=== PATIENT | male | born 1945 | race Caucasian/White ===

== ENCOUNTER 2017-06-06 20:13 | Emergency (ER) | payer MEDICARE, OTHER ==
[~2017-06-06] VITALS: Ht 170.2 cm; Wt 112.0 kg
[~2017-06-06 20:13] MED LIST: ASPI-1441 PO; ASPI81TA94 PO; BLOO-1777 MC; CEP500 PO; GLY25 PO; GLY5 PO; HCTZ25 PO; HYDR-2966 PO; INSU100V26 IJ; METF-420 PO; NPH,100V12 SQ; PARO10TA80 PO; PNEU0.5D3 IM; RAMI2.5C42 PO; SYRI-1525 MC; TRIO80T TOP
--- NOTE | 2017-06-06 20:31 | ER Report ---
History and Physical Time Seen By MD: 20:30 Hx. of Stated Complaint: PATIENT REPORTS HEADACHE, DIZZINESS AND SORE THROAT FOR THE LAST FEW DAYS HPI/ROS CHIEF COMPLAINT: Headache, dizziness HISTORY OF PRESENT ILLNESS: 71-year-old male patient presents to emergency room with complaint of headache, dizziness. Patient states that today he was watching television and developed dizziness. 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 He states that is not uncommon for him to be dizzy however he states that his dizziness scared him tonight. He states that he did call and talk with his son which come down some. We did want to come in and be evaluated. Patient states he 's had a cough as well. States he typically does not have a headache states that today he does have a headache. He states that there is nothing really seems to make it better. He denies having any fevers, chills, nausea, vomiting or diarrhea. REVIEW OF SYSTEMS: Respiratory: As noted above Cardiovascular: No chest pain, no palpitations. Gastrointestinal: No vomiting, no abdominal pain. Musculoskeletal: No back pain. Allergies: Coded Allergies: No Known Drug Allergies (Verified , 04/04/11) Home Meds Active Scripts Azithromycin 250 Mg Tab (AZITHROMYCIN 250 MG TAB) 250 Mg Tablet, 1 TAB PO QDAY, #4 TAB Prov:JOCELYN SMALLSP 06/06/17 Oseltamivir Phosphate (TAMIFLU) 75 Mg Cap, 75 MG PO BID, #8 CAP Prov:JOCELYN SMALLS 06/06/17 Syringe & Needle,Insulin,1 Ml (INSULIN SYRINGE) 1 Each Disp.syrin, EACH MC Q30D , #100 12 Refills Prov:TIM CHRISTINE MD 05/03/17 Hydrochlorothiazide (HYDROCHLOROTHIAZIDE) 25 Mg Tablet, 1 TAB PO QDAY, #90 TAB 3 Refills Prov:TIM CHRISTINE MD 02/02/17 Metformin Hcl (METFORMIN HCL) 1,000 Mg Tablet, 1 TAB PO BID, #120 TAB 3 Refills Prov:TIM CHRISTINE MD 01/30/17 Blood Sugar Diagnostic (FREESTYLE LITE STRIPS) 1 Each Strip, 1 STRIP MC QDAY, # 100 STRIP 12 Refills Prov:TIM CHRISTINE MD 10/27/16 Glyburide (GLYBURIDE) 5 Mg Tab, 2 TAB PO QDAY, #60 TAB 11 Refills Prov:TIM CHRISTINE MD 10/25/16 Ramipril (RAMIPRIL) 2.5 Mg Capsule, 1 TAB PO QDAY, #30 CAPSULE 12 Refills Prov:TIM CHRISTINE MD 08/31/16 Nph, Human Insulin Isophane (NOVOLIN N) 100 Unit/1 Ml Vial, 25 UNIT SQ QAM, #10 VIAL 11 Refills Prov:TIM CHRISTINE MD 07/26/16 Paroxetine Hcl (PAROXETINE HCL) 10 Mg Tablet, 1 TAB PO QDAY, #30 TAB 11 Refills Prov:TIM CHRISTINE MD 05/24/16 Reported Medications Aspirin (ASPIRIN) 81 Mg Tab.chew, 1 TAB PO QDAY, TAB.CHEW 12/19/13 Past Medical/Surgical History Patient has a past medical history of CVA, hypertension, blind in right eye, 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 Patient denies any surgical history. Patient has a family medical history of stroke. Reviewed Nurses Notes: Yes Hx Smoking: No Smoking Status: Never Smoker Exposure to Second Hand Smoke?: Yes Hx Substance Use Disorder: No Hx Alcohol Use: No Constitutional Vital Sign - Last 24 Hours 06/06/17 06/06/17 06/06/17 06/06/17 20:21 20:24 20:25 20:30 Temp 99.6 Pulse 110 Resp 20 B/P (MAP) 157/86 (109) 128/77 (94) 128/77 Pulse Ox 86 O2 Delivery Room Air O2 Flow Rate 2.0 06/06/17 06/06/17 06/06/17 06/06/17 20:30 20:43 20:59 21:02 Pulse 113 B/P (MAP) 133/74 (93) 139/76 (97) 134/85 (101) Pulse Ox 97 06/06/17 06/06/17 06/06/17 06/06/17 21:04 21:10 21:11 21:12 Pulse 109 115 108 Resp 20 20 22 B/P (MAP) 129/76 (93) 139/76 (97) 134/85 (101) 129/76 (93) Pulse Ox 98 95 91 O2 Delivery Nasal Cannula Nasal Cannula Nasal Cannula O2 Flow Rate 4 4 4 2/21/18 06/06/17 06/06/17 06/06/17 21:13 21:30 21:43 22:00 Pulse 106 106 B/P (MAP) 142/77 (98) 137/84 (101) Pulse Ox 97 94 Physical Exam General Appearance: The patient is alert, has no immediate need for airway protection and no current signs of toxicity. ENT: Tympanic membranes are pearly-peace, auditory canals are patent, mucous membranes are moist. Respiratory: Chest is non tender, lungs are clear to auscultation. Cardiac: regular rate and rhythm Gastrointestinal: Abdomen is soft and non tender, no masses, bowel sounds normal. Musculoskeletal: Neck: Neck is supple and non tender. Extremities have full range of motion and are non tender. Skin: No rashes or lesions. DIFFERENTIAL DIAGNOSIS: After history and physical exam differential diagnosis was considered for dizziness including but not limited to peripheral and central causes of vertigo, orthostatic causes including dehydration, and blood loss. Medical Decision Making Data Points Result Diagram: 06/06/17205506/06/172055 Laboratory Hematology Test 06/06/17 20:50 06/06/17 20:56 Influenza Virus Type A (PCR) Negative (NEGATIVE) Influenza Virus Type B (PCR) Positive (NEGATIVE) Red Blood Count 5.90 M/uL (4.00-5.60) Mean Corpuscular Volume 77.3 fL (80.0-96.0) Mean Corpuscular Hemoglobin 25.2 pg (26.0-33.0) Mean Corpuscular Hemoglobin Concent 32.6 g/dL (32.0-36.0) Red Cell Distribution Width 16.1 % (11.5-14.5) Mean Platelet Volume 9.1 fL (7.2-11.1) Neutrophils (%) (Auto) 83.8 % (39.4-72.5) Lymphocytes (%) (Auto) 3.0 % (17.6-49.6) Monocytes (%) (Auto) 10.0 % (4.1-12.4) Eosinophils (%) (Auto) 2.2 % (0.4-6.7) Basophils (%) (Auto) 1.0 % (0.3-1.4) Nucleated RBC Relative Count (auto) 0.0 /100WBC Neutrophils # (Auto) 9.6 K/uL (2.0-7.4) Lymphocytes # (Auto) 0.3 K/uL (1.3-3.6) Monocytes # (Auto) 1.2 K/uL (0.3-1.0) Eosinophils # (Auto) 0.3 K/uL (0.0-0.5) Basophils # (Auto) 0.1 K/uL (0.0-0.1) Nucleated RBC Absolute Count (auto) 0.00 K/uL Peripheral Blood Smear Yes Y/N Sodium Level 135 mmol/L (137-145) Potassium Level 4.3 mmol/L (3.5-5.0) Chloride Level 97 mmol/L (98-107) Carbon Dioxide Level 25 mmol/L (22-30) Blood Urea Nitrogen 15 mg/dl (9-21) Creatinine 1.10 mg/dl (0.66-1.25) Glomerular Filtration Rate Calc > 60.0 Random Glucose 160 mg/dl (75-110) Calcium Level 8.9 mg/dl (8.4-10.2) Total Bilirubin 0.6 mg/dl (0.2-1.3) Aspartate Amino Transf (AST/SGOT) 17 U/L (0-35) Alanine Aminotransferase (ALT/SGPT) 28 U/L (0-56) Alkaline Phosphatase 104 U/L (0-126) Total Protein 7.6 gm/dl (6.3-8.2) Albumin 4.2 g/dl (3.5-5.0) Chemistry Test 06/06/17 20:50 06/06/17 20:56 Influenza Virus Type A (PCR) Negative (NEGATIVE) Influenza Virus Type B (PCR) Positive (NEGATIVE) White Blood Count 11.5 k/uL (4.5-11.0) Red Blood Count 5.90 M/uL (4.00-5.60) Hemoglobin 14.9 g/dL (14.0-18.0) Hematocrit 45.7 % (42.0-52.0) Mean Corpuscular Volume 77.3 fL (80.0-96.0) Mean Corpuscular Hemoglobin 25.2 pg (26.0-33.0) Mean Corpuscular Hemoglobin Concent 32.6 g/dL (32.0-36.0) Red Cell Distribution Width 16.1 % (11.5-14.5) Platelet Count 273 K/uL (150-450) Mean Platelet Volume 9.1 fL (7.2-11.1) Neutrophils (%) (Auto) 83.8 % (39.4-72.5) Lymphocytes (%) (Auto) 3.0 % (17.6-49.6) Monocytes (%) (Auto) 10.0 % (4.1-12.4) Eosinophils (%) (Auto) 2.2 % (0.4-6.7) Basophils (%) (Auto) 1.0 % (0.3-1.4) Nucleated RBC Relative Count (auto) 0.0 /100WBC Neutrophils # (Auto) 9.6 K/uL (2.0-7.4) Lymphocytes # (Auto) 0.3 K/uL (1.3-3.6) Monocytes # (Auto) 1.2 K/uL (0.3-1.0) Eosinophils # (Auto) 0.3 K/uL (0.0-0.5) Basophils # (Auto) 0.1 K/uL (0.0-0.1) Nucleated RBC Absolute Count (auto) 0.00 K/uL Peripheral Blood Smear Yes Y/N Glomerular Filtration Rate Calc > 60.0 Calcium Level 8.9 mg/dl (8.4-10.2) Total Bilirubin 0.6 mg/dl (0.2-1.3) Aspartate Amino Transf (AST/SGOT) 17 U/L (0-35) Alanine Aminotransferase (ALT/SGPT) 28 U/L (0-56) Alkaline Phosphatase 104 U/L (0-126) Total Protein 7.6 gm/dl (6.3-8.2) Albumin 4.2 g/dl (3.5-5.0) EKG/Imaging Imaging CHEST: Indication: Persistent cough. Technique: Frontal and lateral views were obtained. Comparison: 05/14/2011 Skeletal and soft tissue structures: Intact and unremarkable. Heart and mediastinum: There is mild deviation to the left, related to volume loss in the left lung. Otherwise unchanged. Lung benjamin: There is ill-defined parenchymal consolidation and volume loss in the left lower lobe, compatible with acute pneumonia. The lungs are otherwise clear. Pleural spaces: A small left effusion is present. Impression: Left lower lobe consolidation, compatible with acute pneumonia. Small left pleural effusion. Report Dictated By: Shan Cheema MD at 06/06/2017 10:32 PM Report E-Signed By: Shan Cheema MD at 06/06/2017 10:35 PM ED Course/Re-evaluation ED Course Patient was admitted to exam room, history and physical were obtained. Differential diagnoses were considered. On examination patient had a negative Hallpike test. A CBC, CMP, chest x-ray, influenza screen were done. Patient had an elevated white count of 11,500, had a little bit of a left shift. All joints were unremarkable. Chest x-ray showed left lower lobe consolidation. Patient was positive for influenza B. I discussed findings with the patient and his family. We will go ahead and treat him for both influenza as well as pneumonia. Patient was given a dose of Tamiflu here in the emergency room, a dose of azithromycin as well as a dose for Tamiflu in the morning. Patient is follow-up with his primary care provider in the next week. Patient verbalized understanding and agreement with plan. Decision to Disposition Date: Jun 06, 2017 Decision to Disposition Time: 22:07 Depart Departure Latest Vital Signs Vital Signs Date Time Temp Pulse Resp B/P (MAP) Pulse Ox O2 Delivery O2 Flow Rate FiO2 06/06/17 22:00 137/84 (101) 06/06/17 21:43 106 94 06/06/17 21:12 22 Nasal Cannula 4 06/06/17 20:25 99.6 Impression: Primary Impression: Influenza B Additional Impression: Pneumonia and influenza Condition: Improved Disposition: HOME OR SELF-CARE Referrals: TIM CHRISTINE MD (PCP) New Scripts Azithromycin 250 Mg Tab (AZITHROMYCIN 250 MG TAB) 250 Mg Tablet 1 TAB PO QDAY, #4 TAB Prov: JOCELYN SMALLS 06/06/17 Oseltamivir Phosphate (TAMIFLU) 75 Mg Cap 75 MG PO BID, #8 CAP Prov: JOCELYN SMALLS 06/06/17 Patient Instructions: Influenza (ED) Additional Instructions: Increase fluid intake. Get plenty of rest. Take Tylenol or Ibuprofen as needed for fevers or pain. Follow up with your primary care provider in the next week. Return to the ER if condition worsens. Problem Qualifiers JOCELYN SMALLS Jun 06, 2017 20:31
[2017-06-06 21:05] LABS: PLATELET COUNT, AUTOMATED 273 K/uL (150-450)
[2017-06-06] MEDS ORDERED: OSELTAMIVIR PHOS 75 MG CAP PO ONE ×2 (21:35→22:40)
[2017-06-06] MEDS ORDERED: OSE75 PO (22:08)
[2017-06-06 22:30] VITALS: BP 124/73
--- NOTE | 2017-06-06 22:38 | RADIOLOGY IMAGING REPORT ---
[place]AC[place] [facility] [place] NAME: Rajesh Neff : 1945 MR: [id number] V: [id number] EXAM DATE: ORDERING PHYSICIAN: JOCELYN SMALLS TECHNOLOGIST: Location: [facility] Patient: Rajesh Neff : 1945 Visit/Account:[id number] Date of Sevice: 06/06/2017 CHEST: Indication: Persistent cough. Technique: Frontal and lateral views were obtained. Comparison: 05/14/2011 Skeletal and soft tissue structures: Intact and unremarkable. Heart and mediastinum: There is mild deviation to the left, related to volume loss in the left lung. Otherwise unchanged. Lung benjamin: There is ill-defined parenchymal consolidation and volume loss in the left lower lobe, c ompatible with acute pneumonia. The lungs are otherwise clear. Pleural spaces: A small left effusion is present. Impression: Left lower lobe consolidation, compatible with acute pneumonia. Small left pleural effusi on. Report Dictated By: Shan Cheema MD at 06/06/2017 10:32 PM Report E-Signed By: Shan Cheema MD at 06/06/2017 10:35 PM WSN:[id number]
[2017-06-06] MEDS ORDERED: AZITHROMYCIN 250 MG TAB PO ONE (22:40)
[2017-06-06] MEDS ORDERED: AZIT-18 PO (22:42)
== END 2017-06-06 22:53 | disposition home or self-care (01) ==
LOC: ER 20:36
DX: J11.1 Influenza due to unidentified influenza virus with other respiratory manifestations (principal); J18.9 Pneumonia, unspecified organism
CPT/HCPCS: 71046; 85025; 87502; 99284; A9270; 82040; 82247; 82310; 82374; 82435; 82565; 82947; 84075; 84132; 84155; 84295; 84450; 84460; 84520

== ENCOUNTER → 2017-07-16 | Outpatient (CLI) | payer MEDICARE, OTHER ==
[~2017-07-16] MED LIST changes: +AZIT-18 PO; +OSE75 PO
== END ==
LOC: LAB 09:45
PROVIDERS: ATTEND Internal Medicine
DX: I10 Essential (primary) hypertension (principal); E11.319 Type 2 diabetes mellitus with unspecified diabetic retinopathy without macular edema
CPT/HCPCS: 36415; 82040; 82247; 82310; 82374; 82435; 82465; 82565; 82947; 83036; 83718; 84075; 84132; 84155; 84295; 84450; 84460; 84478; 84520

== ENCOUNTER → 2017-11-21 | Outpatient (CLI) | payer MEDICARE, OTHER ==
[~2017-11-21] MED LIST changes: +METF-421 PO
[2017-11-21 11:44] LABS: LDL CHOLESTEROL 73 mg/dl
== END ==
LOC: LAB 10:40
PROVIDERS: ATTEND Internal Medicine
DX: E11.319 Type 2 diabetes mellitus with unspecified diabetic retinopathy without macular edema (principal); I10 Essential (primary) hypertension
CPT/HCPCS: 36415; 82040; 82247; 82310; 82374; 82435; 82465; 82565; 82947; 83036; 83718; 84075; 84132; 84155; 84295; 84450; 84460; 84478; 84520

== ENCOUNTER 2018-01-25 21:12 | Inpatient (IN) | payer MEDICARE, OTHER ==
[~2018-01-25 21:12] MED LIST changes: -METF-421 PO; +METF-452 PO; -RAMI2.5C42 PO; +RAMI2.5C43 PO
--- NOTE | 2018-01-25 21:17 | ER Report ---
History and Physical Time Seen By MD: 21:17 HPI/ROS CHIEF COMPLAINT: Shortness of breath HISTORY OF PRESENT ILLNESS: 72-year-old male presents ambulatory to the ER presents with increasing shortness of breath for one week. Tonight he is very s hort of breath. He denies chest pain. He notes some congestion and a cough. He's had no phlegm or mucus. He's had no fever or chills. He's had no leg swelling or calf pain. REVIEW OF SYSTEMS: Respiratory: As above Cardiovascular: No chest pain, no palpitations. Gastrointestinal: No vomiting, no abdominal pain. Musculoskeletal: No back pain. Allergies: Coded Allergies: No Known Drug Allergies (Verified , 04/04/11) Home Meds Active Scripts Enoxaparin Sodium (LOVENOX) 120 Mg/0.8 Ml Disp.syrin, 120 MG SQ Q12H, #6 Take at 11am and 11pm, but can move dosing back 2 hours after 2 doses to better match bedtime. Prov:KIARA ALLRED MD 01/27/18 Warfarin Sodium (COUMADIN) 5 Mg Tablet, 5 MG PO HS, #30 Start on 01/28 Prov:KIARA ALLRED MD 01/27/18 Blood Sugar Diagnostic (FREESTYLE LITE STRIPS) 1 Each Strip, 1 STRIP MC QDAY, #100 STRIP 12 Refills Prov:TIM CHRISTINE MD 12/26/17 Nph, Human Insulin Isophane (NOVOLIN N) 100 Unit/1 Ml Vial, 25 UNIT SQ QAM, #10 VIAL 11 Refills Prov:TIM CHRISTINE MD 12/24/17 Metformin Hcl (METFORMIN HCL) 1,000 Mg Tablet, 1 TAB PO BID, #180 TAB 0 Refills Prov:TIM CHRISTINE MD 10/15/17 Ramipril (RAMIPRIL) 2.5 Mg Capsule, 1 TAB PO QDAY, #90 CAPSULE 3 Refills Prov:TIM CHRISTINE MD 09/26/17 Syringe & Needle,Insulin,1 Ml (INSULIN SYRINGE) 1 Each Disp.syrin, EACH MC Q30D, #100 6 Refills Prov:TIM CHRISTINE MD 08/14/17 Paroxetine Hcl (PAROXETINE HCL) 10 Mg Tablet, 1 TAB PO QDAY, #90 TAB 3 Refills Prov:TIM CHRISTINE MD 07/16/17 Hydrochlorothiazide (HYDROCHLOROTHIAZIDE) 25 Mg Tablet, 1 TAB PO QDAY, #90 TAB 3 Refills Prov:TIM CHRISTINE MD 02/02/17 Glyburide (GLYBURIDE) 5 Mg Tab, 2 TAB PO QDAY, #60 TAB 11 Refills Prov:TIM CHRISTINE MD 10/25/16 Reported Medications Aspirin (ASPIR 81) 81 Mg Tablet.dr, 81 MG PO QDAY, TAB 01/27/18 Discontinued Reported Medications Aspirin (ASPIRIN) 81 Mg Tab.chew, 1 TAB PO QDAY, TAB.CHEW 12/19/13 Past Medical/Surgical History Past Medical History HEENT: Reports hx of: retinopathy (diabetic) tinnitus vision deficit (diabetic retinopathy) Cardiovascular: Reports hx of: hyperlipidemia (pure hyperglyceridemia) hypertension Respiratory: Reports hx of: pneumonia (06/03 with influenza) Psychiatric: Reports hx of: anxiety depression Endocrine: Reports hx of: diabetes type 2 Infectious disease: Reports hx of: other infectious disease (06/03 influenza and [facility] pneu) Past Surgical History HEENT: Reports hx of: cataract extraction (10/25;11/25) R distal index finger amputation, [employer] 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 113 Resp 21 B/P (MAP) 174/102 174/102 (126) Pulse Ox 86 O2 Delivery Room Air O2 Flow Rate 2.0 01/25/18 01/25/18 01/25/18 01/25/18 21:21 21:30 21:42 21:42 Pulse 101 Resp 77 B/P (MAP) 169/97 (121) 156/97 (116) Pulse Ox 100 96 O2 Delivery Nasal Cannula O2 Flow Rate 2.0 01/25/18 01/25/18 01/25/18 01/25/18 21:42 22:00 22:12 22:30 Pulse 99 107 Resp 14 13 B/P (MAP) 154/89 (110) 162/93 (116) Pulse Ox 95 10/12/18 10/12/18 10/12/18 10/12/18 22:42 22:42 23:12 23:13 Pulse 106 106 105 Resp 17 17 12 B/P (MAP) 148/92 (110) Pulse Ox 93 93 94 01/25/18 01/25/18 01/25/18 01/26/18 23:18 23:30 23:48 00:00 Pulse 100 101 Resp 21 11 B/P (MAP) 149/76 (100) 137/83 (101) Pulse Ox 94 93 01/26/18 01/26/18 00:18 00:23 Pulse 99 98 Resp 19 15 Pulse Ox 94 94 Physical Exam General Appearance: The patient is alert, has no immediate need for airway protection and no current signs of toxicity. Vital signs stable, mild tachycardia, afebrile, pulse ox normal HEENT: Blind, oropharynx without redness or exudate, mucous. Membranes are moist. Respiratory: Chest is non tender, clear lung benjamin on the right. Decreased breath sounds on the left Cardiac: regular rate and rhythm Gastrointestinal: Abdomen is soft and non tender, no masses, bowel sounds normal. Musculoskeletal: Neck: Neck is supple and non tender. No JVD, no lymphadenopathy Extremities have full range of motion and are non tender. No calf tenderness, no edema Skin: No rashes or lesions. DIFFERENTIAL DIAGNOSIS: After history and physical exam differential diagnosis was considered for shortness of breath including but not limited to pulmonary infectious process, COPD, asthma, pulmonary embolus and congestive heart failure. Medical Decision Making Data Points Result Diagram: 01/27/18 0523 01/27/18 0523 Laboratory Hematology Test 01/25/18 22:00 D-Dimer Quantitative (PE/DVT) 2.60 ug/ml (0-0.50) Troponin I < 0.012 ng/ml B-Type Natriuretic Peptide 42 pg/ml (0-100) Chemistry Test 01/25/18 22:00 D-Dimer Quantitative (PE/DVT) 2.60 ug/ml (0-0.50) Troponin I < 0.012 ng/ml B-Type Natriuretic Peptide 42 pg/ml (0-100) Coagulation Test 01/25/18 22:00 D-Dimer Quantitative (PE/DVT) 2.60 ug/ml EKG/Imaging EKG Interpretation 12 lead EK Rhythm: As tachycardia, rate 103 [place]: At axis deviation QRS: normal ST segments: normal, no evidence of ischemia Imaging X-ray: Two-view chest x-ray was obtained. I viewed the images myself on the PACS system. My interpretation of the images is: No infiltrate,? Cardiomegaly,. The radiologist interpretation had no clinically significant variation from this interpretation. Results: CT scan of the CTA pulmonary angiogram was obtained. The results of the study are CT ANGIOGRAM OF THE CHEST WITH INTRAVENOUS CONTRAST, PE PROTOCOL DATE OF EXAM: 01/25/2018 22:27 COMPARISON: Chest radiographs of the same day. INDICATION: dyspnea. TECHNIQUE: Contrast enhanced chest CT performed during the injection of 75 ml of Isovue-370. Three-dimensional (MIP) reconstructions were performed. FINDINGS: There is a pulmonary arterial embolus in a subsegmental branch of the left lower lobe. This extends to a rounded pleural-based opacity. There is a small left pleural effusion. The central pulmonary arteries are enlarged with the pulmonary arterial trunk measuring 3.6 cm diameter. The RV LV ratio is less than 1. No reflux contrast into the hepatic veins. Thyroid: Normal Thoracic inlet: No adenopathy. Heart and great vessels: Heart size is normal. Mediastinum and herb: No mediastinal or hilar adenopathy. Lungs and pleura: Excluding the aforementioned opacity, there is mild scattered atelectasis. Breast and axilla: Unremarkable by CT. Bones and soft tissues: No acute osseous abnormality. Diffusely decreased bone density in the thoracic spine. Upper abdomen: There are a few colonic diverticula. IMPRESSION: 1. Positive for pulmonary arterial embolus in a subsegmental branch of the left lower lobe. The adjacent pleural-based opacity could be rounded atelectasis, infiltrate, or developing pulmonary infarct. There is a trace left pleural effusion. The study was read by the radiologist. I viewed the images myself on the PACS system. ED Course/Re-evaluation Clinical Indication for ER IV: IV Access ED Course Patient was admitted to an examination room. H&P was done. The differential diagnoses was considered. On clinical examination. Patient with shortness of breath and a cough. He's evaluated for potential etiologies of his shortness of breath. He is hypoxic. He is hypertensive and tachycardic. Diagnostic evaluation shows a normal chest x-ray, EKG is unremarkable. Patient's diagnostic studies show an elevated d-dimer, a CTA pulmonary angiogram is performed which shows a pulmonary embolism. And pulmonary infarction. Case is discussed with hospitalist for admission. 01/26/2018 12:02:48 am case discussed with Dr. Chandra Diaz hospitalist on- call, who accepts the patient for admission. Decision to Disposition Date: Jan 26, 2018 Decision to Disposition Time: 00:00 Critical Care Time I spent a total of 60 minutes of critical care time in obtaining history, performing a physical exam, bedside monitoring of interventions, collecting and interpreting tests and discussion with consultants but not including time spent performing procedures. Depart Departure Latest Vital Signs Vital Signs Date Time Temp Pulse Resp B/P (MAP) Pulse Ox O2 Delivery O2 Flow Rate FiO2 01/26/18 00:23 98 15 94 01/26/18 00:00 137/83 (101) 01/25/18 21:42 Nasal Cannula 2.0 Impression: Primary Impression: Pulmonary embolism Additional Impression: Pulmonary infarction Condition: Improved Disposition: Admitted from ER Referrals: TIM CHRISTINE MD (PCP) New Scripts Enoxaparin Sodium (LOVENOX) 120 Mg/0.8 Ml Disp.syrin 120 MG SQ Q12H, #6 Take at 11am and 11pm, but can move dosing back 2 hours after 2 doses to better match bedtime. Prov: KIARA ALLRED MD 01/27/18 Warfarin Sodium (COUMADIN) 5 Mg Tablet 5 MG PO HS, #30 Start on 01/28 Prov: KIARA ALLRED MD 01/27/18 Problem Qualifiers Primary Impression: Pulmonary embolism Pulmonary embolism type: other Chronicity: acute Acute cor pulmonale presence: without acute cor pulmonale Qualified Codes: I26.99 - Other pulmonary embolism without acute cor pulmonale YURIDIA BELL DO Jan 25, 2018 21:17
[2018-01-25] MEDS ORDERED: ALBUTEROL/IPRATROPIUM 3 ML NEB NEB ONE (21:25)
[2018-01-25 22:08] LABS: PLATELET COUNT, AUTOMATED 287 K/uL (150-450)
[2018-01-25] MEDS ORDERED: IOPAMIDOL 76% 75 ML INFUS BTL 75 ML ONE (22:41)
[2018-01-25] MEDS ORDERED: NS(*) 0.9% 50 ML BAG 50 ML ONE (22:41)
--- NOTE | 2018-01-25 23:38 | RADIOLOGY IMAGING REPORT ---
FACILITY: [facility] - [place] PATIENT NAME: Rajesh Neff : 1945 MR: [id number] V: [id number] EXAM DATE: ORDERING PHYSICIAN: YURIDIA BELL [place]CHNOLOG[place]: [place] [facility] [place] Rajesh [place] : 1945 Visit/Account:[id number] Date of Sevice: 01/25/2018 CHEST PA AND LAT HISTORY: Respiratory distress. COMPARISON: 06/06/2017 and studies dating to 02/04/2011. TECHNIQUE: PA and lateral views of the chest. FINDINGS: Pulmonary: Right lung is clear. There is a small left pleural effusion versus pleural thickening, unc hanged. There is stable rounded opacity at the left lateral lower lung, potentially rounded atelectas is. No pneumothorax. There is focal pleural thickening at the right lateral mid lung, stable. Cardiomediastinal: The cardiac silhouette is at the upper limits of normal. The mediastinal silhouett e is within normal limits. There is mild aortic calcification. Bones/soft tissues: No acute osseous abnormality. There is mild degenerative change of the spine. The re is mild wedging of T11 and T12, unchanged. The visible abdomen is normal. IMPRESSION: 1. Stable chest without acute process. Report Dictated By: Dalia Guerra at 01/25/2018 11:32 PM Report E-Signed By: Dalia Guerra at 01/25/2018 11:34 PM WSN:[id number]
--- NOTE | 2018-01-25 23:52 | RADIOLOGY IMAGING REPORT ---
FACILITY: [facility] [place] PATIENT NAME: Rajesh Neff : 1945 MR: [id number] V: [id number] EXAM DATE: ORDERING PHYSICIAN: YURIDIA BELL TECHNOLOGIST: Location: [facility] [place] Patient: Rajesh Neff : 1945 Visit/Account:[id number] Date of Sevice: 01/25/2018 CT ANGIOGRAM OF THE CHEST WITH INTRAVENOUS CONTRAST, PE PROTOCOL DATE OF EXAM: 01/25/2018 22:27 COMPARISON: Chest radiographs of the same day. INDICATION: dyspnea. TECHNIQUE: Contrast enhanced chest CT performed during the injection of 75 ml of Isovue-370. Three-d imensional (MIP) reconstructions were performed. FINDINGS: There is a pulmonary arterial embolus in a subsegmental branch of the left lower lobe. This extends t o a rounded pleural-based opacity. There is a small left pleural effusion. The central pulmonary colby scarlet are enlarged with the pulmonary arterial trunk measuring 3.6 cm diameter. The RV LV ratio is les s than 1. No reflux contrast into the hepatic veins. Thyroid: Normal Thoracic inlet: No adenopathy. Heart and great vessels: Heart size is normal. Mediastinum and herb: No mediastinal or hilar adenopathy. Lungs and pleura: Excluding the aforementioned opacity, there is mild scattered atelectasis. Breast and axilla: Unremarkable by CT. Bones and soft tissues: No acute osseous abnormality. Diffusely decreased bone density in the thorac ic spine. Upper abdomen: There are a few colonic diverticula. IMPRESSION: 1. Positive for pulmonary arterial embolus in a subsegmental branch of the left lower lobe. The adjac ent pleural-based opacity could be rounded atelectasis, infiltrate, or developing pulmonary infarct. There is a trace left pleural effusion. One of the following dose optimization techniques was utilized in the performance of this exam: Autom ated exposure control; adjustment of the mA and/or kV according to the patient's size; or use of an i terative reconstruction technique. Specific details can be referenced in the facility's radiology C T exam operational policy. Report Dictated By: Mango Kang MD at 01/25/2018 11:40 PM Report E-Signed By: Mango Kang MD at 01/25/2018 11:48 PM WSN:[id number]
[2018-01-26 00:57] VITALS: BP 149/93
[2018-01-26] MEDS ORDERED: ACETAMINOPHEN 325 MG TAB PO PRN (01:10)
[2018-01-26] MEDS ORDERED: FLUSH 10 ML SYR IVP PRN (01:10)
[2018-01-26] MEDS ORDERED: INSULIN HUM LISPRO 100 UN/ML 3 ML VIAL SUBQ PRN (01:20)
--- NOTE | 2018-01-26 01:40 | History & Physical ---
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 He reports onset of dyspnea approximately one week ago. He states it increased randy adily to the point he was having difficulty tolerating any activities. He denied chest pain or palpitations. No orthopnea/PND. Some head congestion and cough with scant sputum. No fevers or chills. No leg pain or swelling. He does report being rather sedentary for "quite awhile this summer". No history of DVT or PE, but family (children and grandchildren) history if positive. He was evaluated in the ER and found to have left-sided PE with possible infarct as well. He was recommended for admission. 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, with long-term current use of insulin Status: Chronic (5) Essential hypertension Status: Chronic Home Meds Active Scripts Blood Sugar Diagnostic (FREESTYLE LITE STRIPS) 1 Each Strip, 1 STRIP MC QDAY, #100 STRIP 12 Refills Prov:TIM CHRISTINE MD 12/26/17 Nph, Human Insulin Isophane (NOVOLIN N) 100 Unit/1 Ml Vial, 25 UNIT SQ QAM, #10 VIAL 11 Refills Prov:TIM CHRISTINE MD 12/24/17 Metformin Hcl (METFORMIN HCL) 1,000 Mg Tablet, 1 TAB PO BID, #180 TAB 0 Refills Prov:TIM CHRISTINE MD 10/15/17 Ramipril (RAMIPRIL) 2.5 Mg Capsule, 1 TAB PO QDAY, #90 CAPSULE 3 Refills Prov:TIM CHRISTINE MD 09/26/17 Syringe & Needle,Insulin,1 Ml (INSULIN SYRINGE) 1 Each Disp.syrin, EACH MC Q30D, #100 6 Refills Prov:TIM CHRISTINE MD 08/14/17 Paroxetine Hcl (PAROXETINE HCL) 10 Mg Tablet, 1 TAB PO QDAY, #90 TAB 3 Refills Prov:TIM CHRISTINE MD 07/16/17 Hydrochlorothiazide (HYDROCHLOROTHIAZIDE) 25 Mg Tablet, 1 TAB PO QDAY, #90 TAB 3 Refills Prov:TIM CHRISTINE MD 02/02/17 Glyburide (GLYBURIDE) 5 Mg Tab, 2 TAB PO QDAY, #60 TAB 11 Refills Prov:TIM CHRISTINE MD 10/25/16 Reported Medications Aspirin (ASPIRIN) 81 Mg Tab.chew, 1 TAB PO QDAY, TAB.CHEW 12/19/13 Allergies: Coded Allergies: No Known Drug Allergies (Verified , 04/04/11) Patient History: Alcoholism in family FATHER (Heart Disease; Alcohol disorder), , Age:62 BROTHER OR SISTER (Alcoholism; Heart Disease ; Diabetes; complications helicop ter crash in [place] Age:68 FH: diabetes mellitus BROTHER OR SISTER (Alcoholism; Heart Disease ; Diabetes; complications helicopter crash in [place] Age:68 FH: heart disease FATHER (Heart Disease; Alcohol disorder), , Age:62 BROTHER OR SISTER (Alcoholism; Heart Disease ; Diabetes; complications helicopter crash in [place] Age:68 FH: hypertension brother (Stroke; Hypertension (Agent orange exposure).), Age:71 FH: stroke brother (Stroke; Hypertension (Agent orange exposure).), Age:71, Onset:57 Other Social/Family Hx Son and granddaughter () have history of DVT/PE. Hx Smoking: No Smoking Status: Never Smoker Exposure to Second Hand Smoke?: Yes Hx Alcohol Use: No Hx Substance Use Disorder: No Review of Systems Constitutional: No Fever, No Chills Neurological: No Syncope, No Confusion Eyes: Loss of Vision (chronic) ENT: No Hearing Loss Cardiovascular: No Chest Pain, No Palpitations Respiratory: Shortness of Breath, Cough Gastrointestinal: No Nausea, No Vomiting, No Diarrhea, No Hematemesis, No Hematochezia, No Melena Genitourinary: No Dysuria, No Hematuria Psychiatric: Depression, Anxiety Exam Vital Signs Vital Signs Date Time Temp Pulse Resp B/P (MAP) Pulse Ox O2 Delivery O2 Flow Rate FiO2 01/26/18 00:57 101 16 149/93 (111) 94 Nasal Cannula 2.0 General Appearance: Alert, Awake Neuro: Other (bilateral blindness) ENT: Oropharynx Clear Neck: No Masses, Other (short/thick) Cardiovascular: Regular Rate and Rhythm Respiratory: Clear to Auscultation Chest: No Tenderness GI: Abd Soft and Non-Tender (obese/BS present) : No CVA Tenderness Lymph: No Adenopathy Extremities: Warm, Perfused, Edema (trace pedal edema bilaterally) Integumentary: Generalized Fragile Skin, Other (some venous stasis changes left lower extremity) Psych: Alert & Oriented X3 Medical Decision Making Data Points Result Diagram: 01/25/18219901/25/182199 Item Value Date Time Albumin 4.0 g/dl 01/25/182199 Total Protein 7.2 g/dl 01/25/182199 Troponin I < 0.012 ng/ml 01/25/182199 Alkaline Phosphatase 83 U/L 01/25/182199 Alanine Aminotransferase (ALT/SGPT) 19 U/L 01/25/182199 Aspartate Amino Transf (AST/SGOT) 16 U/L 01/25/182199 Total Bilirubin 0.7 mg/dl 01/25/182199 Calcium Level 9.7 mg/dl 01/25/182199 B-Type Natriuretic Peptide 42 pg/ml 01/25/182199 D-Dimer Quantitative (PE/DVT) 2.60 ug/ml H 01/25/182199 EKG / Imaging Imaging PATIENT NAME: Rajesh Neff : 1945 MR: [id number] V: [id number] EXAM DATE: ORDERING PHYSICIAN: YURIDIA BELL TECHNOLOGIST: Location: [facility] Patient: Rajesh Neff : 1945 Visit/Account:[id number] Date of Sevice: 01/25/2018 CT ANGIOGRAM OF THE CHEST WITH INTRAVENOUS CONTRAST, PE PROTOCOL DATE OF EXAM: 01/25/2018 22:27 COMPARISON: Chest radiographs of the same day. INDICATION: dyspnea. TECHNIQUE: Contrast enhanced chest CT performed during the injection of 75 ml of Isovue-370. Three-dimensional (MIP) reconstructions were performed. FINDINGS: There is a pulmonary arterial embolus in a subsegmental branch of the left lower lobe. This extends to a rounded pleural-based opacity. There is a small left pleural effusion. The central pulmonary arteries are enlarged with the pulmonary arterial trunk measuring 3.6 cm diameter. The RV LV ratio is less than 1. No r eflux contrast into the hepatic veins. Thyroid: Normal Thoracic inlet: No adenopathy. Heart and great vessels: Heart size is normal. Mediastinum and herb: No mediastinal or hilar adenopathy. Lungs and pleura: Excluding the aforementioned opacity, there is mild scattered atelectasis. Breast and axilla: Unremarkable by CT. Bones and soft tissues: No acute osseous abnormality. Diffusely decreased bone density in the thoracic spine. Upper abdomen: There are a few colonic diverticula. IMPRESSION: 1. Positive for pulmonary arterial embolus in a subsegmental branch of the left lower lobe. The adjacent pleural-based opacity could be rounded atelectasis, infiltrate, or developing pulmonary infarct. There is a trace left pleural effusion. One of the following dose optimization techniques was utilized in the performance of this exam: Automated exposure control; adjustment of the mA and/or kV according to the patient's size; or use of an iterative reconstruction technique. Specific details can be referenced in the facility's radiology CT exam operational policy. Report Dictated By: Mango Kang MD at 01/25/2018 11:40 PM Report E-Signed By: Mango Kang MD at 01/25/2018 11:48 PM [id number] Assessment and Plan Problems: (1) Pulmonary embolism Status: Acute Assessment & Plan: He has risk factors of family history and sedentary lifestyle. Will check hypercoaguable studies. Will start on SQ Lovenox 1mg/kg BID and initiate oral warfarin. Watch protime/INR closely. (2) Pulmonary infarction Status: Acute (3) Essential hypertension Status: Chronic Assessment & Plan: Will continue ramipril. Watch BPs. 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 Continue glyburide and NPH. Watch glucoses and use SSI as needed. Copies to: TIM CHRISTINE MD ; Venous Thromboembolism Antithrombotics Is Pt On Any Antithrombotics?: Yes Exam Sepsis Risk: No Definite Risk Problem Qualifiers (1) Pulmonary embolism: Pulmonary embolism type: other Chronicity: acute Acute cor pulmonale presence: without acute cor pulmonale Qualified Codes: I26.99 - Other pulmonary embolism without acute cor pulmonale KASH ASIF MD Jan 26, 2018 01:40
[2018-01-26] MEDS: ENOXAPARIN 100 MG/ML SYR SC SCH ×2 (02:42→12:40)
[2018-01-26] MEDS: NS(*) 0.9% 1000 ML BAG 1,000 ML IV PRN (03:05)
--- NOTE | 2018-01-26 05:06 | EKG ---
FACILITY: [facility] - [place] PATIENT NAME: ROSA RAMOS : [id number] MR: [id number] V: [id number] EXAM DATE: ORDERING PHYSICIAN: YURIDIA BELL TECHNOLOGIST: FERMÍN Test Reason : SOB Blood Pressure : / mmHG Vent. Rate : 103 BPM Atrial Rate : 103 BPM P-R Int : 168 ms QRS Dur : 084 ms QT Int : 336 ms P-R-T Axes : 036 -55 032 degrees QTc Int : 440 ms Sinus tachycardia Left axis deviation Decreased R wave progression through precordial leads Abnormal ECG No previous ECGs available Confirmed by KASH ASIF ([id number]) on 01/26/2018 6:33:13 AM Referred By: ARABELLA Confirmed By:KASH ASIF
[2018-01-26 07:46] VITALS: BP 164/95
--- NOTE | 2018-01-26 08:35 | Miscellaneous Provider Note ---
Miscellaneous Provider Note Note Patient admitted after midnight. Feeling better this am. No new complaints. Exam unremarkable except for chronic venous stasis changes LLE and normal RLE. Patient also obese. Will continue to monitor. Coumadin 10mg ordered for this am. Hypercoaguable studies pending. LUCIANO ASIF MD Jan 26, 2018 08:35
[2018-01-26] MEDS: RAMIPRIL 2.5 MG CAP PO SCH (09:33)
[2018-01-26] MEDS: PAROXETINE HCL 10 MG TABLET PO SCH (09:33)
[2018-01-26] MEDS: INSULIN HUM ISO(NPH) 100 UN/ML 3 ML VIAL SUBQ SCH (09:33)
[2018-01-26] MEDS: glyBURIDE 5 MG TAB PO SCH (09:34)
[2018-01-26] MEDS ORDERED: WARFARIN SOD 10 MG TAB PO ONE (13:00)
[2018-01-26 13:16] VITALS: BP 148/83
[2018-01-26 18:27] VITALS: BP 142/87
[2018-01-26] MEDS ORDERED: CALCIUM CARBONATE 500 MG CHEW PO PRN (19:45)
[2018-01-26 22:19] VITALS: BP 150/93
[2018-01-27] MEDS: NS(*) 0.9% 1000 ML BAG 1,000 ML IV PRN (00:12)
[2018-01-27] MEDS: ENOXAPARIN 100 MG/ML SYR SC SCH ×2 (00:59→13:37)
[2018-01-27 03:58] VITALS: BP 148/80
[2018-01-27 06:06] LABS: PLATELET COUNT, AUTOMATED 291 K/uL (150-450)
[2018-01-27 06:17] LABS: INR 1.04
[2018-01-27 07:38] VITALS: BP 151/91
[2018-01-27] MEDS: RAMIPRIL 2.5 MG CAP PO SCH (09:05)
[2018-01-27] MEDS: glyBURIDE 5 MG TAB PO SCH (09:05)
[2018-01-27] MEDS: PAROXETINE HCL 10 MG TABLET PO SCH (09:05)
[2018-01-27] MEDS: INSULIN HUM ISO(NPH) 100 UN/ML 3 ML VIAL SUBQ SCH (09:05)
[2018-01-27 11:45] VITALS: BP 135/87
[2018-01-27] MEDS ORDERED: WARFARIN SOD 5 MG TAB PO SCH (13:00)
[2018-01-27 15:01] VITALS: BP 142/80
[2018-01-27] MEDS ORDERED: ENOX120D5 SQ (16:16)
[2018-01-27] MEDS ORDERED: WARF-1 PO (16:16)
--- NOTE | 2018-01-27 16:27 | Hospitalist Depart ---
Discharge Summary Reason for Hosp/Final Diag: (1) Pulmonary embolism Status: Acute Hospital Course & Plan: He presented with 1 week of progressive dyspnea. He was found to have a left sided PE with infarction by CTA of the chest. He has risk factors of family history and sedentary lifestyle. He still is requiring a small amount of O2. BP/P stable. Hypercoagulable studies pending. On SQ Lovenox 1mg/kg BID and initiate oral warfarin. INR on 01/29 as outpatient. (2) Pulmonary infarction Status: Acute Hospital Course & Plan: Secondary to above. (3) Essential hypertension Status: Chronic Hospital Course & Plan: Will continue ramipril. 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 The CT pulmonary angiogram was >48 hours ago. Continue glyburide and NPH. (5) Cerebral artery occlusion with cerebral infarction Status: Chronic Hospital Course & Plan: Continue chronic aspirin. I explained to the and patient that he is at an increased risk for bleeding with the ASA and warfarin, but is still at a higher risk for CVA and DVT/PE without either of them. They expressed understanding. Departure Weight (Pounds): 248 Weight (Ounces): 5.0 Result Diagram: 01/27/1852201/27/18522 Item Value Date Time White Blood Count 13.6 k/uL H 01/25/182199 White Blood Count 10.9 k/uL 01/27/18522 Hemoglobin 15.4 g/dL 01/27/18522 Hemoglobin 15.1 g/dL 01/25/182199 Platelet Count 287 K/uL 01/25/182199 Platelet Count 291 K/uL 01/27/18522 D-Dimer Quantitative (PE/DVT) 2.60 ug/ml H 01/25/182199 Prothromb Time International Ratio 1.04 01/27/18522 Troponin I < 0.012 ng/ml 01/25/182199 B-Type Natriuretic Peptide 42 pg/ml 01/25/182199 Total Bilirubin 0.7 mg/dl 01/25/182199 Aspartate Amino Transf (AST/SGOT) 16 U/L 01/25/182199 Alanine Aminotransferase (ALT/SGPT) 19 U/L 01/25/18 2200 Alkaline Phosphatase 83 U/L 01/25/18 2200 Blood Urea Nitrogen 18 mg/dl 01/25/18 2200 Creatinine 1.20 mg/dl 01/25/18 2200 Sodium Level 136 mmol/L L 01/25/18 2200 Potassium Level 4.1 mmol/L 01/25/18 2200 Chloride Level 98 mmol/L 01/25/18 2200 Carbon Dioxide Level 25 mmol/L 01/25/18 2200 Blood Urea Nitrogen 15 mg/dl 01/27/18 0523 Creatinine 1.00 mg/dl 01/27/18 0523 Whole Blood Glucose 148 mg/DL H 01/27/18 1144 Whole Blood Glucose 146 mg/DL H 01/27/18 0741 Random Glucose 151 mg/dl H 01/27/18 0523 Whole Blood Glucose 124 mg/DL H 01/26/18 1705 Whole Blood Glucose 137 mg/DL H 01/26/18 2056 Imaging 01/25/18 Chest CTA - 1. Positive for pulmonary arterial embolus in a subsegmental branch of the left lower lobe. The adjacent pleural-based opacity could be rounded atelectasis, infiltrate, or developing pulmonary infarct. There is a trace left pleural effusion. 01/25/18 CXR - 1. Stable chest without acute process. EKG Vent. Rate : 103 BPM Atrial Rate : 103 BPM P-R Int : 168 ms QRS Dur : 084 ms QT Int : 336 ms P-R-T Axes : 036 -55 032 degrees QTc Int : 440 ms Sinus tachycardia Left axis deviation Decreased R wave progression through precordial leads Abnormal ECG No previous ECGs available Confirmed by KASH ASIF ([id number]) on 01/26/2018 6:33:13 AM Condition: Improved Discharge: Home Discharge Instructions Home Meds Active Scripts Enoxaparin Sodium (LOVENOX) 120 Mg/0.8 Ml Disp.syrin, 120 MG SQ Q12H, #6 Take at 11am and 11pm, but can move dosing back 2 hours after 2 doses to better match bedtime. Prov:KIARA ALLRED MD 01/27/18 Warfarin Sodium (COUMADIN) 5 Mg Tablet, 5 MG PO HS, #30 Start on 01/28 Prov:KIARA ALLRED MD 01/27/18 Blood Sugar Diagnostic (FREESTYLE LITE STRIPS) 1 Each Strip, 1 STRIP MC QDAY, #100 STRIP 12 Refills Prov:TIM RAMOS MD 12/26/17 Nph, Human Insulin Isophane (NOVOLIN N) 100 Unit/1 Ml Vial, 25 UNIT SQ QAM, #10 VIAL 11 Refills Prov:TIM RAMOS MD 12/24/17 Metformin Hcl (METFORMIN HCL) 1,000 Mg Tablet, 1 TAB PO BID, #180 TAB 0 Refills Prov:TIM RAMOS MD 10/15/17 Ramipril (RAMIPRIL) 2.5 Mg Capsule, 1 TAB PO QDAY, #90 CAPSULE 3 Refills Prov:TIM RAMOS MD 09/26/17 Syringe & Needle,Insulin,1 Ml (INSULIN SYRINGE) 1 Each Disp.syrin, EACH MC Q30D, #100 6 Refills Prov:TIM RAMOS MD 08/14/17 Paroxetine Hcl (PAROXETINE HCL) 10 Mg Tablet, 1 TAB PO QDAY, #90 TAB 3 Refills Prov:TIM RAMOS MD 07/16/17 Hydrochlorothiazide (HYDROCHLOROTHIAZIDE) 25 Mg Tablet, 1 TAB PO QDAY, #90 TAB 3 Refills Prov:TIM RAMOS MD 02/02/17 Glyburide (GLYBURIDE) 5 Mg Tab, 2 TAB PO QDAY, #60 TAB 11 Refills Prov:TIM RAMOS MD 10/25/16 Reported Medications Aspirin (ASPIR 81) 81 Mg Tablet.dr, 81 MG PO QDAY, TAB 01/27/18 Discontinued Reported Medications Aspirin (ASPIRIN) 81 Mg Tab.chew, 1 TAB PO QDAY, TAB.CHEW 12/19/13 Diet: Diabetic Activity: As Tolerated Special Instructions: INR on 01/[address] [facility]. Follow up with Dr. Ramos in 1-2 weeks to follow up pending tests and check O2 needs. Copies to: TIM RAMOS MD; ERNIE STEIN PHARMD ; Venous Thromboembolism Antithrombotics Is Pt On Any Antithrombotics?: Yes Problem Qualifiers (1) Pulmonary embolism: Pulmonary embolism type: other Chronicity: acute Acute cor pulmonale presence: without acute cor pulmonale Qualified Codes: I26.99 - Other pulmonary embolism without acute cor pulmonale KIARA ALLRED MD Jan 27, 2018 16:27
[2018-01-27] MEDS ORDERED: ASPI-1471 PO (16:54)
== END 2018-01-27 18:15 | disposition home or self-care (01) | DRG 176 ==
LOC: ER 21:27 → MED 01-26 00:27
PROVIDERS: ADMIT Internal Medicine; ATTEND Internal Medicine
DX: I26.99 Other pulmonary embolism without acute cor pulmonale (principal); E11.319 Type 2 diabetes mellitus with unspecified diabetic retinopathy without macular edema; I87.8 Other specified disorders of veins; I10 Essential (primary) hypertension; F41.8 Other specified anxiety disorders; R09.02 Hypoxemia; E78.5 Hyperlipidemia, unspecified; R00.0 Tachycardia, unspecified; Z79.4 Long term (current) use of insulin; Z79.82 Long term (current) use of aspirin; Z79.01 Long term (current) use of anticoagulants; Z86.73 Personal history of transient ischemic attack (TIA), and cerebral infarction without residual deficits
CPT/HCPCS: 36415; 36416; 71046; 71275; 81241; 81291; 82040; 82247; 82310; 82374; 82435; 82565; 82947; 82948; 83090; 83880; 84075; 84132; 84155; 84295; 84450; 84460; 84484; 84520; 85025; 85300; 85303; 85306; 85379; 85610; 85613; 85730; 86147; 93005; 94640; 99291; J1650; J7030; J7050; Q9967

== ENCOUNTER 2018-01-28 09:12 | Outpatient (RCR) | payer MEDICARE, OTHER ==
[~2018-01-28 09:12] MED LIST changes: +ASPI-1471 PO; +ENOX120D5 SQ; +WARF-1 PO
--- NOTE | 2018-01-28 14:14 | Transitional Care Management ---
Assessment Visit Type: Telephone Visit Spoke with: Rajesh Cardiac: WNL Respiratory: WNL Except Respiratory Comment: 01/28 He is on continuous oxygen, though he is not sure how much and can't see the concetrator. He takes it off when he goes to the restroom and does not feel SOB. He does not have a pulse ox, I recomended he get one to check. GI: Nutrition: WN GI Comment: 01/28 Blood sugar this morning was 98. Constipation?: No : WNL Musculoskeletal, Exercise: WN Musculoskeletal, Excercise Com: 01/28 Tollerating activity well. Mobility/Falls: WNL Integumentary: WN Integumentary Comment: 01/28 We discussed coumadin and his increased bleed times and easy bruising. Feeling of Well Being: WN Socialization: [facility] Socialization Comment: 01/28 Lives at home with his . Pain/Management: WN Scheduled Follow-Up with Provi: Yes (01/[address] Andino on 01/30) Needed or Pending Tests: Yes (01/28 PT/INR tomorrow) Following Discharge Instructio: Yes TCM Discharge Criteria Medication Knowledge: 01/28 He explained the Lovenox and coumadin regimen to me. Transitional Care Comment: 01/26 He agrees to the program and the home visit, I reviewed warfarin and PE with handouts for the family,(he is blind). 01/28 I reviewed his discharge Meds and instructions, risk for bleeding with coumadin, O2 safety. I asked about what time would be good for a home visit, and he declined, "we just talked about everything." He sees Dr Andino on Sunday. JONAH SCHULTE Jan 28, 2018 14:14
[2018-01-31] MEDS ORDERED: HYDR-2966 PO (14:17)
[2018-01-31] MEDS ORDERED: METF-452 PO (14:17)
--- NOTE | 2018-01-31 14:18 | Transitional Care Management ---
Assessment Cardiac: WNL Respiratory: WNL Except Respiratory Comment: 01/28 He is on continuous oxygen, though he is not sure how much and can't see the concetrator. He takes it off when he goes to the restroom and does not feel SOB. He does not have a pulse ox, I recomended he get one to check. GI: Nutrition: WN GI Comment: 01/28 Blood sugar this morning was 98. Constipation?: No : WNL Musculoskeletal, Exercise: WNL Musculoskeletal, Excercise Com: 01/28 Tollerating activity well. Mobility/Falls: WNL Integumentary: WN Integumentary Comment: 01/28 We discussed coumadin and his increased bleed times and easy bruising. Feeling of Well Being: WNL Socialization: WN Socialization Comment: 01/28 Lives at home with his . Pain/Management: WNL Scheduled Follow-Up with Provi: Yes (01/[address] Andino on 01/30) Needed or Pending Tests: Yes (01/28 PT/INR tomorrow) Following Discharge Instructio: Yes TCM Discharge Criteria Medication Knowledge: 01/28 He explained the Lovenox and coumadin regimen to me. Transitional Care Comment: 01/26 He agrees to the program and the home visit, I reviewed warfarin and PE with handouts for the family,(he is blind). 01/28 I reviewed his discharge Meds and instructions, risk for bleeding with coumadin, O2 safety. I asked about what time would be good for a home visit, and he declined, "we just talked about everything." He sees Dr Andino on Sunday. unable to contact-left messages Copies to: TIM CHRISTINE MD ; TYLER BRITT Jan 31, 2018 14:18
--- NOTE | 2018-02-01 14:30 | Transitional Care Management ---
Assessment Cardiac: WNL Respiratory: WNL Except Respiratory Comment: 01/28 He is on continuous oxygen, though he is not sure how much and can't see the concetrator. He takes it off when he goes to the restroom and does not feel SOB. He does not have a pulse ox, I recomended he get one to check. GI: Nutrition: WN GI Comment: 01/28 Blood sugar this morning was 98. Constipation?: No : WNL Musculoskeletal, Exercise: WNL Musculoskeletal, Excercise Com: 01/28 Tollerating activity well. Mobility/Falls: WNL Integumentary: WNL Integumentary Comment: 01/28 We discussed coumadin and his increased bleed times and easy bruising. Feeling of Well Being: WNL Socialization: WN Socialization Comment: 01/28 Lives at home with his . Pain/Management: WNL Scheduled Follow-Up with Provi: Yes (01/[address] Andino on 01/30) Needed or Pending Tests: Yes (01/28 PT/INR tomorrow) Following Discharge Instructio: Yes TCM Discharge Criteria Medication Knowledge: 01/28 He explained the Lovenox and coumadin regimen to me. Transitional Care Comment: 01/26 He agrees to the program and the home visit, I reviewed warfarin and PE with handouts for the family,(he is blind). 01/28 I reviewed his discharge Meds and instructions, risk for bleeding with coumadin, O2 safety. I asked about what time would be good for a home visit, and he declined, "we just talked about everything." He sees Dr Andino on Sunday. unable to contact-left messages 02/01 pt called and left message that he had lab done and is "off the shots, on pills now" . Unable to contact to review red flags etc. MARILU BONNER Feb 01, 2018 14:30
[2018-02-05] MEDS ORDERED: NPH,100V12 SQ (09:11)
--- NOTE | 2018-02-06 13:03 | Transitional Care Management ---
Assessment Cardiac: WNL Respiratory: WNL Except Respiratory Comment: 01/28 He is on continuous oxygen, though he is not sure how much and can't see the concetrator. He takes it off when he goes to the restroom and does not feel SOB. He does not have a pulse ox, I recomended he get one to check. GI: Nutrition: WN GI Comment: 01/28 Blood sugar this morning was 98. Constipation?: No : WNL Musculoskeletal, Exercise: WNL Musculoskeletal, Excercise Com: 01/28 Tollerating activity well. Mobility/Falls: WNL Integumentary: WNL Integumentary Comment: 01/28 We discussed coumadin and his increased bleed times and easy bruising. Feeling of Well Being: WNL Socialization: WN Socialization Comment: 01/28 Lives at home with his . Pain/Management: WNL Scheduled Follow-Up with Provi: Yes (01/[address] Andino on 01/30) Needed or Pending Tests: Yes (01/28 PT/INR tomorrow) Following Discharge Instructio: Yes TCM Discharge Criteria Medication Knowledge: 01/28 He explained the Lovenox and coumadin regimen to me. Transitional Care Comment: 01/26 He agrees to the program and the home visit, I reviewed warfarin and PE with handouts for the family,(he is blind). 01/28 I reviewed his discharge Meds and instructions, risk for bleeding with coumadin, O2 safety. I asked about what time would be good for a home visit, and he declined, "we just talked about everything." He sees Dr Andino on Sunday. unable to contact-left messages 02/01 pt called and left message that he had lab done and is "off the shots, on pills now" . Unable to contact to review red flags etc. 02/06 Unable to contact-left messages. DC from program D/T unable to contact. Copies to: TIM CHRISTINE MD ; TYLER BRITT Feb 06, 2018 13:03
== END 2018-02-06 08:07 | disposition home or self-care (01) ==
LOC: TCM 09:12
PROVIDERS: ATTEND Nurse Practitioner
DX: Z02.9 Encounter for administrative examinations, unspecified (principal)

== ENCOUNTER → 2018-01-29 | Outpatient (CLI) | payer MEDICARE, OTHER ==
[2018-01-29 09:55] LABS: INR 1.83
== END ==
LOC: LAB 09:21
PROVIDERS: ATTEND Internal Medicine
DX: I26.99 Other pulmonary embolism without acute cor pulmonale (principal)
CPT/HCPCS: 36415; 85610

== ENCOUNTER → 2018-03-27 | Outpatient (CLI) | payer MEDICARE, OTHER ==
[~2018-03-27] MED LIST changes: +OXYGENHOME INH
[2018-03-27 10:24] LABS: LDL CHOLESTEROL 72 mg/dl
== END ==
LOC: LAB 09:21
PROVIDERS: ATTEND Internal Medicine
DX: I10 Essential (primary) hypertension (principal); E11.319 Type 2 diabetes mellitus with unspecified diabetic retinopathy without macular edema; E78.5 Hyperlipidemia, unspecified
CPT/HCPCS: 36415; 82040; 82247; 82310; 82374; 82435; 82465; 82565; 82947; 83036; 83718; 84075; 84132; 84155; 84295; 84450; 84460; 84478; 84520

== ENCOUNTER → 2018-07-23 | Outpatient (CLI) | payer MEDICARE, OTHER | LOC: LAB 15:22 | PROVIDERS: ATTEND Nurse Practitioner Family | DX: E11.319 Type 2 diabetes mellitus with unspecified diabetic retinopathy without macular edema (principal); I10 Essential (primary) hypertension | CPT/HCPCS: 36415; 82040; 82247; 82310; 82374; 82435; 82565; 82947; 83036; 84075; 84132; 84155; 84295; 84443; 84450; 84460; 84520 ==

== ENCOUNTER → 2018-11-04 | Outpatient (CLI) | payer MEDICARE, OTHER ==
[2018-11-04 12:23] LABS: PLATELET COUNT, AUTOMATED 263 K/uL (150-450)
== END ==
LOC: LAB 12:03
PROVIDERS: ATTEND Nurse Practitioner Family
DX: E78.5 Hyperlipidemia, unspecified (principal); E11.319 Type 2 diabetes mellitus with unspecified diabetic retinopathy without macular edema; Z12.5 Encounter for screening for malignant neoplasm of prostate; I10 Essential (primary) hypertension
CPT/HCPCS: 36415; 83036; 84443; 85025; G0103; 82040; 82247; 82310; 82374; 82435; 82565; 82947; 84075; 84132; 84153; 84155; 84295; 84450; 84460; 84520

== ENCOUNTER 2018-12-05 17:09 | Emergency (ER) | payer MEDICARE, OTHER ==
--- NOTE | 2018-12-05 17:45 | ER Report ---
History and Physical Time Seen By MD: 17:40 Hx. of Stated Complaint: SOB FOR A FEW DAYS, IS ON OXYGEN AT HOME HE HAD A BLOOD CLOT LAST JAN HPI/ROS CHIEF COMPLAINT: SOB HISTORY OF PRESENT ILLNESS: Patient is a 73 year old M here c/o dyspnea on exertion and when laying down. He states when laying down he feels like he can't breath because his throat gets so dry. Patient drinks 1 12oz bottle of water a day and some Poweraide. He feels short of breath after walking from the car to the house as well which is relieved by him sitting down and resting. Denies having chest pain, fever or a cough. History of PE and several strokes and is taking baby ASA and Warfarin. States he used to be able to take walks but can't now. Patient wears oxygen canula at home but not all the time against recommendations. Hasn't taken anything to make the SOB better. These SOB events happen several times a day and cause him anxiety until he can catch his breath. REVIEW OF SYSTEMS: Respiratory: No cough, dyspnea, SOB Cardiovascular: No chest pain, no palpitations. Gastrointestinal: No vomiting, no abdominal pain. Musculoskeletal: No back pain. Allergies: Coded Allergies: No Known Drug Allergies (Verified , 12/05/18) Home Meds Active Scripts Spironolactone (SPIRONOLACTONE) 25 Mg Tablet, 25 MG PO DAILY, #30 TAB Prov:JOCELYN SMALLS 12/05/18 Hydrochlorothiazide (HYDROCHLOROTHIAZIDE) 25 Mg Tablet, 1 TAB PO QDAY, #90 TAB 4 Refills Prov:ELMO FOX APRN-C 12/03/18 Ramipril (RAMIPRIL) 2.5 Mg Capsule, 1 TAB PO QDAY, #90 CAPSULE 1 Refill Prov:ELMO FOX APRN-C 10/21/18 Glyburide (GLYBURIDE) 5 Mg Tab, 2 TAB PO QDAY, #180 TAB 0 Refills Prov:ELMO FOX APRN-C 09/17/18 Metformin Hcl (METFORMIN HCL) 1,000 Mg Tablet, 1 TAB PO BID, #180 TAB 0 Refills Prov:ELMO FOX APRN-C 09/03/18 Warfarin Sodium (COUMADIN) 5 Mg Tablet, 5 MG PO HS, #30 5 Refills Or dosage as instructed based on INR. Prov:ELMO FOX APRN [employer]PL[employer] DIS[employer] TECHNICIAN-C 07/23/18 Paroxetine Hcl (PAROXETINE HCL) 10 Mg Tablet, 1 TAB PO QDAY, #90 TAB 3 Refills Prov:ELMO FOX APRN EXPL[employer]IVE [employer] DISPOSAL TECHNICIAN-C 07/23/18 Nph, Human Insulin Isophane (NOVOLIN N) 100 Unit/1 Ml Vial, 25 UNIT SQ QAM, #10 VIAL 11 Refills Prov:TIM CHRISTINE MD 02/05/18 Blood Sugar Diagnostic (FREESTYLE LITE STRIPS) 1 Each Strip, 1 STRIP MC QDAY, #100 STRIP 12 Refills Prov:TIM CHRISTINE MD 12/26/17 Syringe & Needle,Insulin,1 Ml (INSULIN SYRINGE) 1 Each Disp.syrin, EACH MC Q30D, #100 6 Refills Prov:TIM CHRISTINE MD 08/14/17 Reported Medications Oxygen (OXYGEN) Inha, 2 L INH cont, L 03/28/18 Aspirin (ASPIR 81) 81 Mg Tablet.dr, 81 MG PO QDAY, TAB 01/27/18 Past Medical/Surgical History Past medical history of CVA, DVT, HTN, PE, partially blind both eyes, diabetes Family history of stroke No pertinent surgical history Reviewed Nurses Notes: Yes Hx Smoking: No Smoking Status: Never Smoker Exposure to Second Hand Smoke?: Yes Hx Substance Use Disorder: No Hx Alcohol Use: No Constitutional Vital Sign - Last 24 Hours 12/05/18 12/05/18 12/05/18 12/05/18 17:12 17:20 17:30 17:39 Temp 98.5 Pulse 90 86 Resp 20 16 B/P (MAP) 148/87 (107) 148/87 141/79 (99) Pulse Ox 94 93 O2 Delivery Room Air 12/05/18 12/05/18 12/05/18 12/05/18 17:42 18:00 18:09 18:30 Pulse 86 Resp 16 B/P (MAP) 134/75 (94) 144/80 (101) Pulse Ox 93 O2 Flow Rate 2.0 12/05/18 12/05/18 12/05/18 12/05/18 18:35 18:50 19:00 19:05 Pulse 82 79 79 Resp 19 15 B/P (MAP) 134/99 (111) Pulse Ox 93 93 92 12/05/18 12/05/18 12/05/18 12/05/18 19:20 19:30 19:35 19:50 Pulse 78 80 78 B/P (MAP) 144/78 (100) Pulse Ox 92 92 92 Physical Exam General Appearance: The patient is alert, has no immediate need for airway protection and no current signs of toxicity. Eyes: Pupils equal and round no injection. Respiratory: Chest is non tender, lungs are clear to auscultation. Cardiac: regular rate and rhythm Gastrointestinal: Abdomen is soft and non tender, no masses, bowel sounds normal. Musculoskeletal: Neck: Neck is supple and non tender. Extremities have full range of motion and are non tender. Skin: No rashes or lesions. DIFFERENTIAL DIAGNOSIS: After history and physical exam differential diagnosis was considered for Pneumonia, obesity hypoventilation syndrome, PE, dehydration, acidosis Medical Decision Making Data Points Result Diagram: 12/05/18 1732 12/05/18 1732 Laboratory Hematology Test 12/05/18 17:32 White Blood Count 9.1 k/uL (4.5-11.0) Red Blood Count 5.11 M/uL (4.00-5.60) Hemoglobin 14.2 g/dL (14.0-18.0) Hematocrit 44.8 % (42.0-52.0) Mean Corpuscular Volume 87.7 fL (80.0-96.0) Mean Corpuscular Hemoglobin 27.8 pg (26.0-33.0) Mean Corpuscular Hemoglobin Concent 31.7 g/dL (32.0-36.0) L Red Cell Distribution Width 14.8 % (11.5-14.5) H Platelet Count 278 K/uL (150-450) Mean Platelet Volume 11.3 fL (7.2-11.1) H Neutrophils (%) (Auto) 72.6 % (39.4-72.5) H Lymphocytes (%) (Auto) 11.0 % (17.6-49.6) L Monocytes (%) (Auto) 10.5 % (4.1-12.4) Eosinophils (%) (Auto) 3.9 % (0.4-6.7) Basophils (%) (Auto) 0.8 % (0.3-1.4) Nucleated RBC Relative Count (auto) 0.0 /100WBC Neutrophils # (Auto) 6.6 K/uL (2.0-7.4) Lymphocytes # (Auto) 1.0 K/uL (1.3-3.6) L Monocytes # (Auto) 1.0 K/uL (0.3-1.0) Eosinophils # (Auto) 0.4 K/uL (0.0-0.5) Basophils # (Auto) 0.1 K/uL (0.0-0.1) Nucleated RBC Absolute Count (auto) 0.00 K/uL Chemistry Test 12/05/18 17:30 12/05/18 17:32 Whole Blood Glucose 82 mg/DL (75-110) Sodium Level 139 mmol/L (137-145) Potassium Level 3.9 mmol/L (3.5-5.0) Chloride Level 107 mmol/L (98-107) Carbon Dioxide Level 22 mmol/L (22-30) Blood Urea Nitrogen 17 mg/dl (9-21) Creatinine 1.00 mg/dl (0.66-1.25) Glomerular Filtration Rate Calc > 60.0 Random Glucose 82 mg/dl (75-110) Calcium Level 9.0 mg/dl (8.4-10.2) Total Bilirubin 0.7 mg/dl (0.2-1.3) Aspartate Amino Transf (AST/SGOT) 20 U/L (0-35) Alanine Aminotransferase (ALT/SGPT) 23 U/L (0-56) Alkaline Phosphatase 90 U/L (0-126) Troponin I < 0.012 ng/ml B-Type Natriuretic Peptide 108 pg/ml (0-100) Total Protein 7.1 g/dl (6.3-8.2) Albumin 3.9 g/dl (3.5-5.0) Coagulation Test 12/05/18 17:32 D-Dimer Quantitative (PE/DVT) 0.27 ug/ml (0-0.50) EKG/Imaging EKG Interpretation 12 lead EKG: Rhythm: normal sinus rhythm [place]: Left axis deviation QRS: normal ST segments: normal Imaging CHEST PA LAT INDICATION: RESP DISTRESS COMPARISON: 01/25/2018 FINDINGS: The cardiac silhouette remains mildly enlarged. There is increased pulmonary vascular congestion with mild pulmonary edema pattern present. Reidentified is a rounded opacity involving the left lower lobe with pleural thickening There is no pneumothorax or pleural effusion. IMPRESSION: 1. Interval development of mild CHF pattern 2. Stable rounded atelectasis and pleural parenchymal scarring involving the left lower lobe Report Dictated By: Bradford Issa at 12/05/2018 7:17 PM Report E-Signed By: Bradford Issa at 12/05/2018 7:20 PM ED Course/Re-evaluation ED Course Patient was admitted to an exam room, history and physical were obtained. Differential diagnoses were considered. On examination lungs were clear, heart was regular, abdomen soft nontender. Patient denied having any shortness of breath this time. A CBC, CMP, troponin, d-dimer, BNP, chest x-ray, EKG were done. EKG showed a normal sinus rhythm with a left axis deviation, CBC and CMP were unremarkable. Troponin was negative, d-dimer was negative. BNP was elevated 108. Patient also had some mild congestive changes in his chest x-ray. Discussed findings with the patient and his family. We discussed options, including holding off starting a diuretic at this time and having primary care start that. However they felt that they would like to go ahead and get that started. We will go ahead and start the patient on spironolactone, 25 mg daily. They're to follow-up with Elmo Fox the next week and have repeat lab work including a potassium level drawn. We discussed this with the family and they verbalized understanding and agreement with plan. Decision to Disposition Date: Dec 05, 2018 Decision to Disposition Time: 19:46 Depart Departure Latest Vital Signs Vital Signs Date Time Temp Pulse Resp B/P (MAP) Pulse Ox O2 Delivery O2 Flow Rate FiO2 12/05/18 19:50 78 92 12/05/18 19:30 144/78 (100) 12/05/18 18:50 15 12/05/18 17:42 2.0 12/05/18 17:20 98.5 Room Air Impression: Primary Impression: Shortness of breath Additional Impression: Congestive heart disease Condition: Improved Disposition: HOME OR SELF-CARE Referrals: ELMO FOX APRN-C (PCP) New Scripts Spironolactone (SPIRONOLACTONE) 25 Mg Tablet 25 MG PO DAILY, #30 TAB Prov: JOCELYN SMALLS 12/05/18 Patient Instructions: GENERAL ER DISCHARGE INSTRUCTIONS Additional Instructions: Take the medication as prescribed. Follow up with your primary care provider in the next week. Return to the ER if condition worsens. Continue with your current diet. Get plenty of rest. Wear oxygen as directed. Problem Qualifiers Additional Impression: Congestive heart disease Heart failure type: unspecified Heart failure chronicity: acute Qualified Codes: I50.9 - Heart failure, unspecified JOCEYLN SMALLS Dec 05, 2018 17:45
[2018-12-05 18:12] LABS: PLATELET COUNT, AUTOMATED 278 K/uL (150-450)
[2018-12-05] MEDS ORDERED: NS(*) 0.9% 500 ML BAG 500 ML IV ONE (18:15)
--- NOTE | 2018-12-05 19:10 | EKG ---
[place] [facility] [place] ROSA RAMOS : [id number] MR: [id number] V: [id number] EXAM DATE: ORDERING PHYSICIAN: JOCELYN SMALLS TECHNOLOGIST: Test Reason : SOB Blood Pressure : / mmHG Vent. Rate : 086 BPM Atrial Rate : 086 BPM P-R Int : 172 ms QRS Dur : 082 ms QT Int : 368 ms P-R-T Axes : 054 -33 032 degrees QTc Int : 440 ms Normal sinus rhythm Left axis deviation Abnormal ECG When compared with ECG of 25-JAN-2018 21:45, No significant change was found Confirmed by SUSAN YOUNG ([id number]) on 12/06/2018 3:31:34 AM Referred By: Confirmed By:SUSAN YOUNG
--- NOTE | 2018-12-05 19:29 | RADIOLOGY IMAGING REPORT ---
[place] [facility] [place] NAME: Rajesh Neff : 1945 MR: [id number] V: [id number] EXAM DATE: ORDERING PHYSICIAN: JOCELNY SMALLS TECHNOLOGIST: Location: [facility] [place] Patient: Rajesh Neff : 1945 Visit/Account:[id number] Date of Sevice: 12/05/2018 CHEST PA LAT INDICATION: RESP DISTRESS COMPARISON: 01/25/2018 FINDINGS: The cardiac silhouette remains mildly enlarged. There is increased pulmonary vascular congestion with mild pulmonary edema pattern present. Reidentified is a rounded opacity involving the left lower lobe with pleural thickening There is no pneumothorax or pleural effusion. IMPRESSION: 1. Interval development of mild CHF pattern 2. Stable rounded atelectasis and pleural parenchymal scarring involving the left lower lobe Report Dictated By: Bradford Issa at 12/05/2018 7:17 PM Report E-Signed By: Bradford Issa at 12/05/2018 7:20 PM WSN:[email or web address]
[2018-12-05 19:30] VITALS: BP 144/78
[2018-12-05] MEDS ORDERED: SPIR25TA80 PO (19:53)
== END 2018-12-05 20:05 | disposition home or self-care (01) ==
LOC: ER 17:17
DX: R06.02 Shortness of breath (principal); I50.9 Heart failure, unspecified
CPT/HCPCS: 36416; 82948; 83880; 84484; 85025; 85379; 93005; 96360; 99283; J7040; 71046; 82040; 82247; 82310; 82374; 82435; 82565; 82947; 84075; 84132; 84155; 84295; 84450; 84460; 84520